=== PATIENT | female | born 1990 | race Hispanic/Latino ===

== ENCOUNTER 2017-02-18 08:26 | Inpatient (IN) | payer OTHER ==
[2017-02-18] MEDS ORDERED: PITOCin/NS 20 UNIT/1000ML DRIP 20 UNITS/1,000 ML BAG IV SCH (09:00)
[2017-02-18] MEDS ORDERED: LACTATED RINGERS 1,000 ML IV SCH (09:00)
[2017-02-18] MEDS ORDERED: STADOL IV PRN (09:00)
[2017-02-18] MEDS ORDERED: PITOCin/NS 30 UNIT/500ML 30 UNITS/500 ML BAG IV SCH (09:30)
[2017-02-18] MEDS ORDERED: NARCAN 0.4 MG/1 ML IV PRN (09:30)
[2017-02-18] MEDS ORDERED: ePHEDrine SULFATE IV PRN (09:30)
[2017-02-18] MEDS ORDERED: SUBLIMAZE IV PRN (09:30)
[2017-02-18] MEDS ORDERED: XYLOCAINE 2% INFILTRATI ONE (10:00)
[2017-02-18] MEDS ORDERED: BRETHINE SUB-Q PRN (10:00)
[2017-02-18] MEDS ORDERED: MINERAL OIL PO PRN (10:00)
[2017-02-18] MEDS ORDERED: ZOFRAN IV PRN (10:00)
--- NOTE | 2017-02-18 10:41 | History and Physical Report ---
History of Present Illness Date of examination: 02/18/17 Date of admission: 02/18/17 08:26 Chief complaint: induction of labor History of present illness: Pt is a 26 year old female SHARON 02/04/17 at 42w0d who presents for induction of labor secondary to postdates. She reports irregular contractions, but denies leakage of fluid or vaginal bleeding. She has had care at [facility] since 5 wks complicated by UTI (treated ) anemia on iron daily. She is GBS negative. Past History Past Medical History: asthma, other (h/o pneumonia ) Past Surgical History: no surgical history NEGATIVE CUTTER History: abnormal PAP smear Family/Genetic History: hypertension, cancer Social history: no significant social history - Obstetrical History Expected Date of Delivery: 02/04/17 Actual Gestation: 42 Week(s) 0 Day(s) : 3 Para: 2 Hx # Term Pregnancies: 2 Number of Pregnancies: 0 Spontaneous Abortions: 0 Induced : 2 Medications and Allergies Allergies Allergy/AdvReac Type Severity Reaction Status Date / Time No Known Allergies Allergy Unverified 02/18/17 08:27 Active Meds: Active Medications Butorphanol Tartrate (Stadol) 2 mg IV Q2H PRN PRN Reason: Pain , Severe (7-10) Ephedrine Sulfate (Ephedrine Sulfate) 10 mg IV Q2M PRN PRN Reason: Hypotension Stop: 02/19/17 09:29 Fentanyl (Sublimaze) 100 mcg IV Q2H PRN PRN Reason: Labor Pain Lactated Ringer's (Lactated Ringers) 1,000 mls @ 125 mls/hr IV DIRECT CRISTA Oxytocin/Sodium Chloride (Pitocin/Ns 20 Unit/1000ml Drip) 20 units in 1,000 mls @ 125 mls/hr IV DIRECT CRISTA Oxytocin/Sodium Chloride (Pitocin/Ns 30 Unit/500ml) 30 units in 500 mls @ 4 mls /hr IV TITR CRISTA PRN Reason: Protocol Mineral Oil (Mineral Oil) 30 ml PO QHS PRN PRN Reason: Constipation Naloxone HCl (Narcan 0.4 Mg/1 Ml) 0.1 mg IV Q2MIN PRN PRN Reason: Res Rate </= 8 or 02 SAT < 92% Ondansetron HCl (Zofran) 4 mg IV Q8H PRN PRN Reason: Nausea And Vomiting Terbutaline Sulfate (Brethine) 0.25 mg IVP ONCE PRN PRN Reason: Hyperstimulation/Hypertonicity Stop: 02/18/17 11:01 Review of Systems All systems: negative - Vital Signs Vital signs: Vital Signs Pulse BP 80 120/76 02/18/17 09:13 02/18/17 09:13 Temp Pulse Resp BP Pulse Ox 80 120/76 02/18/17 09:13 02/18/17 09:13 - Physical Exam Breasts: Positive: deferred Abdomen: Positive: soft (gravid ) Genitourinary (Female): Positive: normal external genitalia Uterus: Positive: enlarged (gravid ) Extremities: Positive: normal - Obstetrical FHR: auscultation normal, category 1 Uterine Contraction Monitor Mode: External Cervical Dilatation: 2.5 Cervical Effacement Percentage: 70 station: +1 Uterine Contraction Pattern: Irregular Uterine Tone Measurement Phase: Resting Uterine Contraction Intensity: Mild Results All other labs normal. Assessment and Plan A: IUP at 42 wks Favorable cervix GBS negative P: Pitocin induction. Routine intrapartum care.
[2017-02-18 10:43] LABS: Hematocrit 30.9 % (30.3-42.9); Hemoglobin 10.7 gm/dl (10.1-14.3); Mean Corpuscular HGB Conc 35 % (30-34); Mean Corpuscular Hemoglobin 29 pg (28-32); Mean Corpuscular Volume 83 fl (79-97); Platelet Count 241 K/mm3 (140-440); Red Blood Count 3.71 M/mm3 (3.65-5.03); White Blood Count 11.9 K/mm3 (4.5-11.0)
[2017-02-18] MEDS ORDERED: BRETHINE IVP PRN (11:00)
--- NOTE | 2017-02-18 13:36 | Progress Note ---
Assessment and Plan IUP at 42 weeks Latent Labor Postdates Induction Reactive Tracing P: AROM-copious clear fluid Continue Active Vazquez't Subjective - Subjective Date of service: 02/18/17 Patient reports: contractions, no new complaints, no loss of fluid, no vaginal bleeding, no movement normal Objective - Vital Signs Vital Signs: Vital Signs - 12hr 02/18/17 02/18/17 02/18/17 09:13 11:02 11:19 Temperature 98.4 F Pulse Rate 80 87 Blood Pressure 120/76 125/75 02/18/17 02/18/17 02/18/17 11:49 12:19 12:49 Temperature Pulse Rate 82 89 75 Blood Pressure 115/72 117/75 126/75 02/18/17 13:19 Temperature Pulse Rate 83 Blood Pressure 120/78 - Exam Abdomen: Present: normal appearance FHR: category 1 Uterine Contraction Monitor Mode: External Cervical Dilatation: 2.5 Cervical Effacement Percentage: 80 station: -1 Uterine Contraction Frequency (min): 2 Uterine Contraction Duration: 60-80 Uterine Contraction Pattern: Regular Uterine Tone Measurement Phase: Resting Uterine Contraction Intensity: Moderate - Labs Labs: Abnormal Labs 02/18/17 10:15 WBC 11.9 H MCHC 35 H Laboratory Results - last 24 hr 02/18/17 02/18/17 02/18/17 10:15 10:15 10:15 WBC 11.9 H RBC 3.71 Hgb 10.7 Hct 30.9 MCV 83 MCH 29 MCHC 35 H RDW 15.0 Plt Count 241 RPR Nonreactive Blood Type O POSITIVE Antibody Screen Negative
--- NOTE | 2017-02-18 16:54 | Procedure Note ---
OB Delivery Note - Delivery Date of Delivery: 02/18/17 (7-10oz female @ 1618) Surgeon: RACHAEL LOVE Estimated blood loss: 100cc - Vaginal Delivery presentation: vertex Delivery position: OA Intrapartum events: precipitous labor- <3hr Delivery induction: oxytocin Delivery augmentation: rupture of membranes Delivery monitor: external FHT, external uterine Route of delivery: Delivery placenta: spontaneous Delivery cord: 3 umbilical vessels Episiotomy: none Delivery laceration: none Anesthesia: none - A at 1 minute: 8 at 5 minutes: 9 Gender: Female (Progressed rapidly from 3cm to precititous of viable male by RN. Spont. placenta, trailing membranes gently teased out with hemostat, cord blood collected. Pitocin infusing, bleeding moderate, fundus messaged frim, bleeding small. No lacerations on inspection. Infant skin to skin.)
[2017-02-18] MEDS ORDERED: MOTRIN PO PRN (16:58)
[2017-02-18] MEDS ORDERED: TUCKS PAD TP PRN (17:00)
[2017-02-18] MEDS ORDERED: NORCO 5/325 PO PRN (17:00)
[2017-02-18] MEDS ORDERED: BENADRYL PO PRN (17:00)
[2017-02-18] MEDS ORDERED: LANSINOH TP PRN (17:00)
[2017-02-18] MEDS ORDERED: TYLENOL PO PRN (17:00)
[2017-02-18] MEDS ORDERED: DULCOLAX PR PRN (17:00)
[2017-02-18] MEDS ORDERED: PHENERGAN PO PRN (17:00)
[2017-02-18] MEDS ORDERED: SODIUM CHLORIDE FLUSH SYRINGE 10 ML IV NR (17:00)
[2017-02-18] MEDS ORDERED: MILK OF MAGNESIA PO PRN (17:00)
[2017-02-18] MEDS: MOTRIN PO SCH (17:41)
[2017-02-18] MEDS ORDERED: PITOCin/NS 20 UNIT/1000ML DRIP 20,000 MILLIUNITS/1,000 ML BAG IV ONE (18:21)
[2017-02-19] MEDS: MOTRIN PO SCH ×2 (02:05→21:59)
[2017-02-19 06:10] LABS: Hematocrit 26.7 % (30.3-42.9); Hemoglobin 9.3 gm/dl (10.1-14.3)
--- NOTE | 2017-02-19 07:56 | Progress Note ---
Assessment and Plan O: VSS AF PP H/H: 9.3/26.7 A: Stable PP Day 1 Anemia P: Iron BID Subjective - Subjective Date of service: 02/19/17 Patient reports: appetite normal, voiding normally, pain well controlled, flatus , ambulating normally : doing well, nursing well Objective - Vital Signs Latest vital signs: Vital Signs Temp Pulse Resp BP BP Pulse Ox 02/19/17 07:20 98.5 F 75 18 92/59 95 02/19/17 03:01 98.4 F 69 18 106/67 99 02/18/17 21:10 98.3 F 72 20 117/78 97 02/18/17 18:15 97.8 F 71 18 106/66 02/18/17 17:55 78 117/56 02/18/17 17:40 68 122/56 02/18/17 17:26 65 126/63 02/18/17 16:41 66 125/59 02/18/17 16:25 57 L 152/62 02/18/17 16:19 61 138/61 02/18/17 15:49 62 136/76 02/18/17 15:19 68 114/67 02/18/17 14:50 74 127/80 02/18/17 14:20 81 122/81 02/18/17 13:49 71 129/87 02/18/17 13:19 83 120/78 02/18/17 12:49 75 126/75 02/18/17 12:19 89 117/75 02/18/17 11:49 82 115/72 02/18/17 11:19 87 125/75 02/18/17 11:02 98.4 F 02/18/17 09:13 80 120/76 Intake and Output 02/18/17 02/19/17 02/19/17 22:59 06:59 14:59 Output Total 950 950 Balance -950 -950 Output: Urine 950 950 Void 950 950 Other: Total, Output Amount 950 950 Estimated Blood Loss 100 - Exam Breasts: Present: deferred Abdomen: Present: normal appearance, soft. Absent: distention, tenderness Uterus: Present: normal, firm, fundal height at umbilicus. Absent: bogginess, tenderness Extremities: Present: normal - Labs Labs: Abnormal lab results 02/18/17 02/19/17 Range/Units 10:15 05:48 WBC 11.9 H (4.5-11.0) K/mm3 Hgb 9.3 L (10.1-14.3) gm/dl Hct 26.7 L (30.3-42.9) % MCHC 35 H (30-34) %
--- NOTE | 2017-02-19 08:00 | Discharge Summary ---
Providers - Providers Date of Admission: 02/18/17 08:26 Date of discharge: 02/19/17 Attending physician: MAC REEVES Primary care physician: [employer] Hospitalization Reason for admission: induction of labor, IUP at term Delivery: Episiotomy: none Laceration: none Other procedures: none complications: none Discharge diagnosis: IUP at term delivered baby: female Condition at discharge: Good Disposition: DC-01 TO HOME OR SELFCARE Plan - Discharge Medications Prescriptions: Ferrous Sulfate [Feosol 325 MG tab] 325 mg PO BID #60 tablet Ibuprofen [Motrin 800 MG tab] 800 mg PO TID PRN #40 tablet PRN Reason: Pain - Provider Discharge Summary Activity: routine, no sex for 6 weeks, no heavy lifting 4 weeks, no strenuous exercise Diet: routine Instructions: routine Additional instructions: [] Smoking cessation referral if applicable(refer to patient education folder for contact #) [] Refer to [facility] Booklet Call your doctor immediately for: * Fever > 100.5 * Heavy vaginal bleeding ( >1 pad per hour) * Severe persistent headache * Shortness of breath * Reddened, hot, painful area to leg or breast * Drainage or odor from incision. * Keep incision clean and dry at all times and follow doctor's instructions regarding bathing/showering - Follow up plan Follow up: PRIMARY CARE, [Primary Care Provider] - RACHAEL LOVE CNM [Advanced Practice Nurse] - (RTO 4 weeks )
[2017-02-19] MEDS: FEOSOL PO SCH ×2 (10:47→21:58)
[2017-02-19] MEDS: PRENATAL VITAMIN PO SCH (10:47)
[2017-02-19] MEDS: COLACE PO SCH ×2 (10:47→21:58)
[2017-02-19] MEDS ORDERED: BOOSTRIX IM ONE (17:00)
[2017-02-19] MEDS ORDERED: M-M-R II VACCINE SUB-Q ONE (17:00)
[2017-02-20 04:28] VITALS: BP 101/55
[2017-02-20] MEDS: MOTRIN PO SCH ×2 (05:08→17:49)
[2017-02-20] MEDS: FEOSOL PO SCH (17:48)
[2017-02-20] MEDS: COLACE PO SCH (17:48)
[2017-02-20] MEDS: PRENATAL VITAMIN PO SCH (17:49)
== END 2017-02-20 18:05 | disposition home or self-care (01) | DRG 775 ==
LOC: LD 08:26 → OB 18:13
PROVIDERS: ADMIT Obstetrics & Gynecology; ATTEND Obstetrics & Gynecology
PROC: 10E0XZZ Delivery of Products of Conception, External Approach (ICD-10-PCS; principal; 2017-02-18)
PROC: 3E0P3VZ Introduction of Hormone into Female Reproductive, Percutaneous Approach (ICD-10-PCS; 2017-02-18)
PROC: 3E0234Z Introduction of Serum, Toxoid and Vaccine into Muscle, Percutaneous Approach (ICD-10-PCS; 2017-02-18)
PROC: 10907ZC Drainage of Amniotic Fluid, Therapeutic from Products of Conception, Via Natural or Artificial Opening (ICD-10-PCS; 2017-02-18)
DX: O62.3 Precipitate labor (principal); Z3A.42 42 weeks gestation of pregnancy; Z37.0 Single live birth; O48.0 Post-term pregnancy; Z23 Encounter for immunization; O99.52 Diseases of the respiratory system complicating childbirth; D64.9 Anemia, unspecified; O99.03 Anemia complicating the puerperium
CPT/HCPCS: 36415; 85014; 85018; 85027; 86592; 86850; 86900; 86901; 99211; A6250; G0463; J0595; J2590; J7120